=== PATIENT | female | born 1975 ===

== ENCOUNTER 2022-10-11 01:42 | Outpatient (CLI) | payer OTHER, SELFPAY ==
[2022-10-15 12:34] LABS: 25-Hydroxy D Total 25 ng/mL; 25-Hydroxy D2 <4.0 ng/mL; 25-Hydroxy D3 25 ng/mL
== END 2022-10-11 01:43 | disposition home or self-care (01) ==
PROVIDERS: Visit Provider General Practice
DX: K08.89 Other specified disorders of teeth and supporting structures (principal); K04.99 Other diseases of pulp and periapical tissues
CPT/HCPCS: 36415; 82306